=== PATIENT | female | born 1970 | race Caucasian/White ===

== ENCOUNTER 2019-10-26 07:39 | Outpatient (CLI) | payer OTHER, SELFPAY ==
--- NOTE | 2019-10-26 07:45 | MM_ITS ---
WS: [id number] BILATERAL DIGITAL SCREENING MAMMOGRAPHY WITH CAD CLINICAL INFORMATION: SCREENING HISTORY: Screening mammogram. No current complaints. COMPARISON: August 15, 2018 TECHNIQUE: Bilateral CC and MLO views. FINDINGS: The breasts are composed of heterogeneous fibroglandular density tissue, which can limit the detectio n of small underlying mass lesions. No suspicious mass, asymmetry, calcifications, or architectural d istortion. No evidence of malignancy. MM/[place] [id number] IMPRESSION: BI-RADS: 1-Negative FOLLOW UP: 1 Year Follow-up Recommend return to annual screening mammography.
== END 2019-10-26 07:40 | disposition home or self-care (01) ==
LOC: RADSHAW 07:41
PROVIDERS: PCP Internal Medicine; Visit Provider Obstetrics & Gynecology
DX: Z12.31 Encounter for screening mammogram for malignant neoplasm of breast (principal)
CPT/HCPCS: 77067

== ENCOUNTER → 2020-01-18 10:53 | Outpatient (BNVA) | payer OTHER, SELFPAY | PROVIDERS: PCP Internal Medicine; Visit Provider Internal Medicine | DX: Z20.828 Contact with and (suspected) exposure to other viral communicable diseases (principal) | CPT/HCPCS: 87635 ==

== ENCOUNTER → 2020-09-16 08:30 | Outpatient (BNVA) | payer OTHER, SELFPAY | PROVIDERS: PCP Internal Medicine; Visit Provider Obstetrics & Gynecology | DX: Z12.4 Encounter for screening for malignant neoplasm of cervix (principal); B37.3 Candidiasis of vulva and vagina | CPT/HCPCS: 88175 ==

== ENCOUNTER 2020-11-06 08:09 | Outpatient (CLI) | payer OTHER, SELFPAY ==
--- NOTE | 2020-11-06 08:17 | MM_ITS ---
WS: [id number] BILATERAL DIGITAL SCREENING MAMMOGRAPHY WITH CAD CLINICAL INFORMATION: SCREENING HISTORY: Screening mammogram. No current complaints. COMPARISON: October 26, 2019 TECHNIQUE: Bilateral CC and MLO views. FINDINGS: The breasts are composed of heterogeneous fibroglandular density tissue, which can limit the detectio n of small underlying mass lesions. No suspicious mass, asymmetry, calcifications, or architectural d istortion. No evidence of malignancy. MM/[place] [id number] IMPRESSION: BI-RADS: 1-Negative FOLLOW UP: 1 Year Follow-up Recommend return to annual screening mammography.
== END 2020-11-06 08:10 | disposition home or self-care (01) ==
LOC: RADSHAW 08:14
PROVIDERS: PCP Family Medicine; Visit Provider Obstetrics & Gynecology
DX: Z12.31 Encounter for screening mammogram for malignant neoplasm of breast (principal)
CPT/HCPCS: 77067

== ENCOUNTER 2021-05-14 15:45 | Outpatient (CLI) | payer OTHER, SELFPAY ==
[2021-05-14 15:50] VITALS: BP 124/82; PULSE 108; RESP 18; O2SAT 99; BMI 27.4
[2021-05-14 16:29] VITALS: BP 118/79; PULSE 100; RESP 17; O2SAT 99
[2021-05-14 17:22] VITALS: BP 118/79; PULSE 108; RESP 16; O2SAT 98
== END 2021-05-14 15:46 | disposition home or self-care (01) ==
LOC: OPS 15:47
PROVIDERS: PCP Family Medicine; Visit Provider Nurse Practitioner Family
DX: U07.1 COVID-19 (principal)
CPT/HCPCS: 96365

== ENCOUNTER → 2021-12-10 08:29 | Outpatient (BNVA) | payer OTHER, SELFPAY | PROVIDERS: PCP Family Medicine; Visit Provider Obstetrics & Gynecology | DX: N93.9 Abnormal uterine and vaginal bleeding, unspecified (principal) | CPT/HCPCS: 76830 ==

== ENCOUNTER 2022-02-03 10:35 | Day surgery (SDC) | payer OTHER, SELFPAY ==
[2022-02-02 12:30] VITALS: BMI 27.4
[2022-02-03] VITALS (8 sets, daily range): BP systolic 94–135; BP diastolic 61–87; PULSE 93–102; RESP 13–18; TEMP 36.3; O2SAT 95–100
[2022-02-03] MEDS: sodium chloride 0.9% 1,000 ML 30 ML IV (11:07)
--- NOTE | 2022-02-03 12:34 | W.PM.OPSUD ---
Surgery/Procedure H&P Update DATE OF PROCEDURE: February 03, 2022 DATE H&P PERFORMED: 01/29/22 H&P UPDATE INFORMATION: I have reviewed H&P completed within last 30 days, I have examined patient prior to procedure and No changes to prior documentation PREOP DIAGNOSIS: thickened endometrium PLANNED PROCEDURE: Operation Date: 02/03/22 12:25 Proposed Procedures p Hysteroscopy, dilation and curettage with Myosure 05187, 59560,52588,N95.0(Not Applicable) - Maria Luz Quintero MD s Dilation And Curettage (D&C)(Not Applicable) - Maria Luz Quintero MD Related Problem List Diagnoses (1) Thickened endometrium:
[2022-02-03] MEDS: ceFAZolin 2,000 MG in sodium chloride 0.9% (plus) 50 ML 100 MG IV (12:45)
[2022-02-03] MEDS: miSOPROStol 200 mcg Tablet 800 MCG VAGINAL (13:09)
--- NOTE | 2022-02-03 13:34 | PM.OP ---
Operative Report Date of procedure: February 03, 2022 Pre-op diagnosis: Preop Diagnosis thickened endometrium Post-op diagnosis: same Post-op findings: 8 week sized uterus. Thickened endometrium with excessive tissue Procedure done: hysteroscopy, dilation and curettage with myosure Specimens removed/disposition: endometrial curettings to pathology Surgeon: Maria Luz Quintero Anesthesia: General Estimated blood loss (mL): 2 IV fluids (mL): 800 Complications: none Findings: hysteroscopy deficit 80 ml Condition: stable Disposition: PACU Procedure: The patient was taken to the operating room where monitored anesthesia was administered and to be adequate. She was prepped and draped in the normal sterile fashion in the dorsal lithotomy position in [facility]. A weighted speculum was placed into the vagina and the anterior lip of the cervix grasped with a single-tooth tenaculum. The cervical os was stenotic. 800 mcg of cytotec was placed vaginally. The uterus was sounded to 8 cm. The cervix was dilated to 16 Latvian. The hysteroscope was advanced into the endometrial cavity. There was excessive tissue visualized. The MyoSure device was activated and the tissue was removed. Pictures were taken pre and post procedure. All instruments were removed. The patient tolerated the procedure well. Sponge lap and needle counts were correct x3. She was taken to the recovery room in stable condition.
--- NOTE | 2022-02-03 13:37 | PM.DCS ---
Discharge Providers Date of Admission: 02/03/22 Date of Discharge: February 03, 2022 Attending Provider at Admission: Dr. Quintero Attending Provider at Discharge: Maria Luz Quintero MD Primary Care Provider: Kervin Washington MD Diagnoses at Discharge Discharge Diagnosis (1) Thickened endometrium: Status: Acute Reason for Visit Reason for Visit: postmenopausal bleeding Hospital Course Hospital Course The patient was admitted for surgery. She did well postoperatively and was ready for discharge. Discharge Data Studies Completed and Pending Pending at discharge Category Date Time Status Pathology: Surgical [PTH] Routine Pth 02/03/22 13:32 Ordered Vitals Last Vital Signs Temp 97.4 F L 02/03/22 11:08 Pulse 102 H 02/03/22 11:08 Resp 18 02/03/22 11:08 BP 135/86 02/03/22 11:08 Pulse Ox 98 02/03/22 11:08 O2 Del Method 02/03/22 11:08 Discharge Plan Discharge Patient Disposition: Home Condition: Stable Prescriptions: Continued amitriptyline 75 mg tablet 75 mg PO DAILY cetirizine [24Hour Allergy] 10 mg tablet 10 mg PO DAILY gabapentin 300 mg PO DIRECTED Rx Instructions: 300mg in the am and 600mg at bedtime Discharge Orders: Discharge Order (Routine); Ordered 02/03/22 Ordered By: Maria Luz Quintero Discharge Attestations Time Spent in Discharge Care*: less than 30 min Quality Metrics Clinical Quality Measures [ No reported AMI, CVA or VTE this stay] Coding Level of Care Code Acute Chg FW DC note Diagnoses Thickened endometrium R93.89
--- NOTE | 2022-02-03 13:44 | ANES.PREANE2 ---
Pre-Anesthetic Assessment Height/Weight: Height 1.65 m Weight 74.843 kg Temp Pulse Resp BP Pulse Ox O2 Del Method 97.4 F L 93 14 108/84 100 02/03/22 13:40 02/03/22 13:40 02/03/22 13:40 02/03/22 13:40 02/03/22 13:40 02/03/22 13:40 Preop Diagnosis: thickened endometrium Operation Date: 02/03/22 12:25 Proposed Procedures p Hysteroscopy, dilation and curettage with Myosure 06674, 83400,95508,N95.0(Not Applicable) - Maria Luz Quintero MD s Dilation And Curettage (D&C)(Not Applicable) - Maria Luz Quintero MD Familial anesthetic complications: none Was Beta Lorena taken within 24 hours: N/A Was Clonidine taken within 24 hours: N/A Last intake: Intake Last Liquid Date 02/02/22 Last Liquid Time 21:00 Last Solid Date 02/02/22 Last Solid Time 20:00 Social Tobacco and No alcohol Exam alert, oriented x 3, clear to auscultation bilaterally and regular rate & rhythm Airway Submandibular: within normal limits Cervical ROM: within normal limits Mallampati: Class II Dentition: full Neuropsych Headache Anesthetic Plan ASA status: 2 Anesthesia: General Medications/Allergies Home Medications Medication Instructions Recorded Confirmed Last Taken Type cetirizine 10 mg tablet (24Hour 10 mg PO DAILY 09/11/19 02/02/22 Unknown History Allergy) amitriptyline 75 mg tablet 75 mg PO DAILY 09/16/20 02/03/22 02/02/22 History gabapentin 300 mg PO DIRECTED 09/22/21 02/03/22 02/03/22 History Allergies Allergy/AdvReac Type Severity Reaction Status Date / Time Penicillins AdvReac Difficulty Verified 02/02/22 12:28 breathing--can take Keflex Current Medications Generic Name Dose Route Start Last Admin Trade Name Freq PRN Reason Stop Dose Admin Sodium Chloride 1,000 mls @ 30 mls/hr 02/03/22 10:45 02/03/22 11:07 Sodium Chloride 0.9% IV 02/04/22 10:44 30 mls/hr .Q24H BRIDGET Administration PFSH Anesthesia Medical History Irritable bowel syndrome IBS has been controlled by diet and avoiding trigger foods. This is managed by her primary care provider Dr. Graf. Migraines, neuralgic Since her teenage years. Denies auras Controlled with medication. No pertinent past medical history Denies diabetes, asthma, hypertension, seizures, DVT/PE. PMD: Dr. Washington Surgical History History of carpal tunnel surgery Bilateral in 2012 S/P dilation of urethra Performed at age 2 for frequent urinary tract infections Family History Family/Other Breast cancer Maternal aunt, diagnosed in her 40s, maternal great aunt, age at diagnosis unknown Mother Hypertension Sister Hypertension Grandfather Diabetes paternal Mother Heart disease Denies family history of Colon cancer Ovarian cancer Hyperlipidemia Uterine cancer Thyroid condition Stroke Social History Smoking and tobacco status: never smoked Data Anesthesia Cardiac Studies: No Data to Display
[2022-02-03] MEDS: HYDROmorphone 1 mg/mL INJ 1 mL 0.5 MG IVP (14:22)
--- NOTE | 2022-02-03 15:19 | ANE.PACU2 ---
Inpatient post-anesthesia follow up: Airway intact: Yes Vital signs: Temperature 97.3 F Pulse Rate 96 Respiratory Rate 18 Blood Pressure 123/87 Pulse Oximetry 100 Oxygen Delivery Me thod Room Air Oxygen Flow Rate Fraction of Inspir ed Oxygen Hydration adequate: Yes Nausea and vomiting: No Pain level: 2 Mental status: Baseline
== END 2022-02-03 15:07 | disposition home or self-care (01) ==
PROVIDERS: PCP Family Medicine; Visit Provider Obstetrics & Gynecology
PROC: 0UDB8ZZ Extraction of Endometrium, Via Natural or Artificial Opening Endoscopic (ICD-10-PCS; CPT 58558; principal; 2022-02-03 12:15)
PROC: (CPT 58120; 2022-02-03 12:15)
DX: R93.89 Abnormal findings on diagnostic imaging of other specified body structures (principal)
CPT/HCPCS: 58558; 88305; J0330; J1100; J1170; J1200; J1885; J2250; J2405; J2704; J2710; J3010; J3490; J7030

== ENCOUNTER 2022-02-19 04:00 | Observation (INO) | payer OTHER, SELFPAY ==
[2022-02-19] VITALS (11 sets, daily range): BP systolic 120–146; BP diastolic 76–98; PULSE 87–116; RESP 15–17; TEMP 36.6–36.8; O2SAT 94–97; BMI 28.3
--- NOTE | 2022-02-19 04:02 | XRR_ITS ---
PROCEDURE INFORMATION: Exam: XR Chest Exam date and time: 02/19/2022 4:19 AM Age: 51 years old Clinical indication: Pain; Chest pressure; Additional info: Cp TECHNIQUE: Imaging protocol: Radiologic exam of the chest. Views: 1 view. COMPARISON: CR XR ribs LT mn 3V w CXR1V [id number] 08/14/2015 2:53 PM FINDINGS: Lungs: Normal lung volumes. No interstitial or airspace opacities. Pleural spaces: No pleural effusion. No pneumothorax. Heart/Mediastinum: Normal heart size. Normal mediastinal contour. Midline trachea. Bones/joints: No acute abnormalities. XR/XR chest 1V portable [id number] IMPRESSION: No chest radiographic evidence of acute cardiopulmonary disease.
--- NOTE | 2022-02-19 04:06 | ECG_ITS ---
[facility] Test Date: 2022-02-19 Pat Name: Tika Salmeron Department: Room: 251 Gender: Female Supervisor [employer]: : 1970 Requested By: Charlee Pringle Order Number: [id number] Alicia MD: Dutch Alejandro M.D. Measurements Intervals [place] Rate: 95 P: 39 HI: 134 QRS: 35 QRSD: 88 T: 54 QT: 340 QTc: 428 Interpretive Statements SINUS RHYTHM LOW QRS VOLTAGE IN PRECORDIAL LEADS [QRS DEFLECTION < 1.0 mV IN CHEST LEADS] No previous ECG available for comparison Electronically Signed On 02-19-2022 11:07:29 CDT by Dutch Alejandro M.D. [email or web address] [email or web address] Network [email or web address].[employer]/store/NU/[id number] f
--- NOTE | 2022-02-19 04:10 | W.ED.CHESTPA ---
HPI - Chest Pain General: Chief Complaint: Chest Pain Stated Complaint: CP Time Seen by Provider: 02/19/22 04:02 Source: patient Mode of arrival: ambulatory Limitations: no limitations History of Present Illness: 51-year-old female who states that she has been having epigastric abdominal pain radiates into her chest and back since 1030 last night. She states the pain is very sharp in nature and rates it an 8 out of 10. She has some mild dyspnea pain is worse with palpation and deep breathing. She denies any vomiting she denies any fever. She denies any dysuria. Associated symptoms: Reports abdominal pain; Deny dyspnea or fever(s) Review of Systems Const: Denies: fever(s), chills, body aches or change in appetite Eyes: Denies: blurry vision or eye discomfort ENMT: Denies: throat pain or dental pain Card: Reports: chest pain Resp: Denies: dyspnea GI: Reports: abdominal pain : Denies: dysuria Musc: Denies: neck pain or back pain Skin/Breast: Denies: rash Neuro: Denies: headache(s) Psych: Denies: depression Valeriy/Lymph: Denies: easy bruising All/Imm: Denies: urticaria PFSH ED PFSH: Medical History Irritable bowel syndrome IBS has been controlled by diet and avoiding trigger foods. This is managed by her primary care provider Dr. Graf. Migraines, neuralgic Since her teenage years. Denies auras Controlled with medication. No pertinent past medical history Denies diabetes, asthma, hypertension, seizures, DVT/PE. PMD: Dr. Washington Surgical History History of carpal tunnel surgery Bilateral in 2012 S/P dilation of urethra Performed at age 2 for frequent urinary tract infections Family History Family/Other Breast cancer Maternal aunt, diagnosed in her 40s, maternal great aunt, age at diagnosis unknown Mother Hypertension Sister Hypertension Grandfather Diabetes paternal Mother Heart disease Denies family history of Colon cancer Ovarian cancer Hyperlipidemia Uterine cancer Thyroid condition Stroke Social History Smoking and tobacco status: never smoked Female Reproductive History: Date of last menstrual period: 01/20/22 Physical Exam Const: COMMON NORMALS: no acute distress, patient oriented x3 and healthy appearing HENMT: COMMON NORMALS: normocephalic and atraumatic HEAD & SCALP: normocephalic and atraumatic Eye: COMMON NORMALS: Equal, round and reactive pupils present and EOMs intact bilaterally PUPIL: Yes Equal, round and reactive pupils present Neck/C-Spine: COMMON NORMALS: full ROM and supple Chest: COMMONS NORMALS: normal inspection of the chest and normal palpation of entire chest wall Resp: COMMON NORMALS: normal respiratory effort, No retractions, No use of accessory muscles and clear to auscultation bilaterally AUSCULTATION: clear to auscultation bilaterally Cardio: COMMON NORMALS: regular rate, regular rhythm and No murmurs present (Cardio) RATE: regular rate RHYTHM: regular rhythm GI: COMMON NORMALS: Normal to inspection, nondistended, normoactive bowel sounds present, Soft to palpation and no masses PALPATION: Yes Soft to palpation and Yes Tenderness to palpation present (GI) Details: RUQ OTHER: epigastric tenderness Extremity: COMMON NORMALS: normal to inspection and full ROM Neuro: COMMON NORMALS: patient oriented x3, moves all extremities and no focal motor deficits Psych: COMMON NORMALS: mental status grossly normal, Normal thought process present and cooperative THOUGHT PROCESS: Normal thought process present Skin: COMMON NORMALS: no rashes or lesions noted and no wounds GENERAL SKIN EXAM: no rashes or lesions noted Course Vital Signs: Vital signs: Vital Signs Temperature 97.9 F 02/19/22 04:02 Pulse Rate 97 02/19/22 04:11 Respiratory Rate 16 02/19/22 04:11 Blood Pressure 141/87 02/19/22 04:02 Pulse Oximetry 96 02/19/22 04:11 Oxygen Delivery Me thod 02/19/22 04:11 MDM - Chest Pain Medical Decision Making Patient presents here with cholelithiasis along with leukocytosis ultrasound did show gallstones with a positive Richards's she still having pain and tenderness over the right upper quadrant concern for cholecystitis I did speak to surgeon on-call will start IV antibiotics and admit at this time she really had no chest pain it is more epigastric abdominal pain. Lab Data : 02/19/22 04:17 02/19/22 04:17 Laboratory Results WBC 15.8 10^3/uL (4.0-10.0) H 02/19/22 04:17 RBC 4.88 10^6/uL (4.1-5.3) 02/19/22 04:17 Hgb 13.7 g/dL (11.5-15.3) 02/19/22 04:17 Hct 45.3 % (37.0-47.0) 02/19/22 04:17 MCV 92.8 fl (81-99) 02/19/22 04:17 MCH 28.1 pg (28.0-34.0) 02/19/22 04:17 MCHC 30.2 g/dL (30.0-36.0) 02/19/22 04:17 RDW 13.3 % (12.1-15.1) 02/19/22 04:17 Plt Count 385 10^3/cmm (130-400) 02/19/22 04:17 MPV 9.2 fL (7.4-10.4) 02/19/22 04:17 Neut % (Auto) 90.2 % 02/19/22 04:17 Lymph % (Auto) 5.7 % 02/19/22 04:17 [place] % (Auto) 3.0 % 02/19/22 04:17 Eos % (Auto) 0.1 % 02/19/22 04:17 Baso % (Auto) 0.4 % 02/19/22 04:17 Neut # (Auto) 14.22 10^3/uL (1.8-7.7) H 02/19/22 04:17 Lymph # (Auto) 0.9 10^3/uL (0.8-4.8) 02/19/22 04:17 [place] # (Auto) 0.5 10^3/uL (0.2-0.9) 02/19/22 04:17 Eos # (Auto) 0.0 10^3/uL (0.0-0.8) 02/19/22 04:17 Baso # (Auto) 0.1 10^3/uL (0.0-0.1) 02/19/22 04:17 Nucleated RBC % (auto) 0 % 02/19/22 04:17 Nucleated RBCs # 0.0 /100WBC 02/19/22 04:17 Sodium 136 mmol/L (136-145) 02/19/22 04:17 Potassium 4.1 mmol/L (3.5-5.1) 02/19/22 04:17 Chloride 98 mmol/L (98-107) 02/19/22 04:17 Carbon Dioxide 23 mmol/L (22-29) 02/19/22 04:17 Anion Gap 19.1 (5-19) H 02/19/22 04:17 BUN 9 mg/dL (6-20) 02/19/22 04:17 Creatinine 0.7 mg/dL (0.5-0.9) 02/19/22 04:17 GFR Calculation 87.9 mL/min (90-130) L 02/19/22 04:17 Glucose 127 mg/dL (65-115) H 02/19/22 04:17 Calculated Osmolality 282 mOsm/kg (285-295) L 02/19/22 04:17 Calcium 9.5 mg/dL (8.5-10.5) 02/19/22 04:17 Total Bilirubin 0.2 mg/dL (0.15-1.2) 02/19/22 04:17 AST 15 U/L (0-32) 02/19/22 04:17 ALT 13 U/L (0-33) 02/19/22 04:17 Alkaline Phosphatase 190 U/L (35-105) H 02/19/22 04:17 Troponin T Baseline 6 ng/L (0-10) 02/19/22 04:17 Total Protein 8.4 g/dL (6.6-8.7) 02/19/22 04:17 Albumin 4.2 g/dL (3.5-5.2) 02/19/22 04:17 Globulin 4.2 g/dL (1.3-4.6) 02/19/22 04:17 Lipase 13 U/L (13-60) 02/19/22 04:17 EKG Data EKG 1: I personally reviewed and interpreted this EKG as follows: EKG interpretation date: 02/19/22 EKG interpretation time: 04:06 Interpretation: nsr hr [address] or t wave abnormalities qrs 88 qtc 392 Discharge Plan Discharge Patient Disposition: Admitted As Inpatient Clinical Impression: Cholelithiasis, Leukocytosis Condition: Stable Coding Level of Care Code ED Gas Line Repairer for Chg Fwd Exam Comprehensive
--- NOTE | 2022-02-19 04:14 | USR_ITS ---
PROCEDURE INFORMATION: Exam: US Abdomen, Limited; Right Upper Quadrant Exam date and time: 02/19/2022 4:27 AM Age: 51 years old Clinical indication: Abdominal pain; Patient HX: Epigastric pain x 8 hrs. ; Additional info: Abd pain TECHNIQUE: Imaging protocol: Real time ultrasound of the abdomen with image documentation. Limited exam focused on the right upper quadrant. COMPARISON: ES surgery / GI images 02/03/2022 1:15 PM FINDINGS: Liver: The visualized liver shows normal contour and morphology with normal parenchymal echo texture. The liver size appears normal on sonography. Main portal vein is patent. Gallbladder: Multiple mobile gallstones are seen, the largest measuring 1.6 cm. No gallbladder wall thickening. No pericholecystic fluid. Sonographic Richards sign was reported by the drum plater. Hepatobiliary scan may be performed, if there is further clinical concern. Biliary ducts: The demonstrated intrahepatic bile ducts are not dilated. The demonstrated extrahepatic is not dilated. The demonstrated extrahepatic/common bile duct measures 0.4 mm. The distal common bile duct is not well seen. Pancreas: Visualized pancreas is unremarkable. Right kidney: The right kidney measures 9.2 x 5 x 4.8 cm. There is normal renal contour and morphology, with normal parenchymal echotexture. There is no hydronephrosis. Aorta: Visualized segments appear unremarkable. Inferior vena cava: Not well seen, related to bowel gas in the abdomen. Intraperitoneal space: There is no right upper quadrant ascites seen. US/US gall bladder [id number] IMPRESSION: 1. Multiple mobile gallstones, the largest measuring 1.6 cm. No gallbladder wall thickening. No pericholecystic fluid. Sonographic Richards sign was reported by the drum plater. Hepatobiliary scan may be performed, if there is further clinical concern. 2. No biliary ductal dilatation.
[2022-02-19 04:20] LABS: Basophils # 0.1 10^3/uL (0.0-0.1); Basophils % 0.4 %; Eosinophils % 0.1 %; Hematocrit 45.3 % (37.0-47.0); Hemoglobin 13.7 g/dL (11.5-15.3); Lymphocytes # 0.9 10^3/uL (0.8-4.8); Lymphocytes % 5.7 %; Mean Corpuscular HGB Conc 30.2 g/dL (30.0-36.0); Mean Corpuscular Hemoglobin 28.1 pg (28.0-34.0); Mean Corpuscular Volume 92.8 fl (81-99); Mean Platelet Volume 9.2 fL (7.4-10.4); Monocytes # 0.5 10^3/uL (0.2-0.9); Neutrophils # 14.22 10^3/uL (1.8-7.7); Neutrophils % 90.2 %; Nucleated Red Blood Cells % 0 %; Platelet Count 385 10^3/cmm (130-400); Red Blood Count 4.88 10^6/uL (4.1-5.3); Red Cell Distribution Width 13.3 % (12.1-15.1); White Blood Count 15.8 10^3/uL (4.0-10.0)
[2022-02-19] MEDS: lidocaine 2% viscous 15 ML, aluminum-mag hydrox-simethicon 30 ML, sucralfate oral liq 1 GM PO (04:20)
[2022-02-19 04:41] LABS: Troponin(5th) Baseline 6 ng/L (0-10)
[2022-02-19 04:45] LABS: Alanine Aminotransferase 13 U/L (0-33); Albumin Level 4.2 g/dL (3.5-5.2); Alkaline Phosphatase 190 U/L (35-105); Anion Gap 19.1 (5-19); Aspartate Amino Transferase 15 U/L (0-32); Blood Urea Nitrogen 9 mg/dL (6-20); Calcium 9.5 mg/dL (8.5-10.5); Carbon Dioxide 23 mmol/L (22-29); Chloride 98 mmol/L (98-107); Globulin 4.2 g/dL (1.3-4.6); Glomerular Filtration Rate 87.9 mL/min (90-130); Glucose 127 mg/dL (65-115); Lipase 13 U/L (13-60); Osmolality Calculated 282 mOsm/kg (285-295); Potassium 4.1 mmol/L (3.5-5.1); Sodium 136 mmol/L (136-145); Total Bilirubin 0.2 mg/dL (0.15-1.2); Total Protein 8.4 g/dL (6.6-8.7)
[2022-02-19] MEDS: ondansetron 2 mg/ML SDV 2 mL 4 MG IVP (05:21)
[2022-02-19] MEDS: HYDROmorphone 1 mg/mL INJ 1 mL IVP (05:21)
[2022-02-19] MEDS: levofloxacin-dextrose 5 % 750 MG/150 ML PREMIX 100 MG IV (05:21)
--- NOTE | 2022-02-19 06:02 | ECG_ITS ---
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 Measurements Intervals [place] Rate: 91 P: 33 NE: 144 QRS: 27 QRSD: 84 T: 48 QT: 340 QTc: 420 Interpretive Statements SINUS RHYTHM No previous ECG available for comparison Electronically Signed On 02-19-2022 11:09:11 CDT by Dutch Alejandro M.D. [id number]
[2022-02-19 06:51] LABS: Troponin 5 2HR Delta 0 ABS# (0-10)
--- NOTE | 2022-02-19 10:02 | ECG_ITS ---
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 Measurements Intervals [place] Rate: 100 P: 24 NM: 144 QRS: 21 QRSD: 82 T: 35 QT: 333 QTc: 429 Interpretive Statements SINUS TACHYCARDIA Compared to ECG 02/19/2022 05:33:23 Sinus rhythm no longer present Electronically Signed On 02-19-2022 11:08:39 CDT by Dutch Alejandro M.D. [id number]
[2022-02-19] MEDS: morphine 4 mg/mL SDV 1 mL 2 MG IVP (10:04)
[2022-02-19 11:36] LABS: Troponin 5 6HR Delta 0 ng/L (0-12)
--- NOTE | 2022-02-19 12:23 | CTR_ITS ---
PROCEDURE INFORMATION: Exam: CT Abdomen And Pelvis With Contrast Exam date and time: 02/19/2022 3:38 PM Age: 51 years old Clinical indication: Abdominal pain; Epigastric; Additional info: Acute cholecystitis TECHNIQUE: Imaging protocol: Computed tomography of the abdomen and pelvis with contrast. Radiation optimization: All CT scans at this facility use at least one of these dose optimization techniques: automated exposure control; mA and/or kV adjustment per patient size (includes targeted exams where dose is matched to clinical indication); or iterative reconstruction. Contrast material: OMNI 350; Contrast volume: 100 ml; Contrast route: INTRAVENOUS (IV); COMPARISON: US gall bladder [id number] 02/19/2022 4:27 AM RADIATION DOSE METRICS: Total DLP (mGy-cm): 804.83 FINDINGS: Lungs: Bibasilar linear scarring-atelectasis. Liver: Normal size without cirrhosis. No suspicious mass. Tiny hypodense focus anterior left lobe measuring 4 mm, likely tiny cyst. Gallbladder and bile ducts: Gallbladder is somewhat distended measuring 4.2 cm, which may be related to prolonged fasting versus cholestasis. No obvious imaging signs of acute cholecystitis or bile duct dilatation however clinical correlation should be obtained. Sonographic correlation should also be considered. Pancreas: Normal. No ductal dilation. Spleen: Normal. No splenomegaly. Adrenal glands: Normal. No mass. Kidneys and ureters: Tiny hypodense right lower pole renal focus measuring 4 mm, too small to characterize but is likely simple cyst. No obstructing calculi or hydronephrosis. No perinephric stranding or collection. Stomach and bowel: Low-moderate stool burden with no bowel obstruction, pneumatosis or suspicious bowel wall thickening. Appendix: No evidence of appendicitis. Intraperitoneal space: Unremarkable. No free air. No significant fluid collection. Vasculature: No abdominal aortic aneurysm. Lymph nodes: No enlarged lymph nodes. Urinary bladder: Unremarkable as visualized. Reproductive: Unremarkable as visualized. Bones/joints: No acute fracture. Soft tissues: No acute findings. CT/CT abdomen pelvis w con* [id number] IMPRESSION: 1. Gallbladder findings. See discussion above. 2. No acute abdominopelvic findings otherwise. COMMENTS: Consistent with the [employer]'s Incidental Findings Committee white paper (J Am Sanjuana Radiol 2018): Any incidental renal lesion less than 1 cm or classified as too small to characterize, or any incidental cystic renal lesion characterized as simple-appearing, is likely benign. No follow-up imaging is recommended for these lesions per consensus recommendations based on imaging criteria.
[2022-02-19] MEDS: sodium chloride 0.9% 1,000 ML 999 ML IV (12:39)
--- NOTE | 2022-02-19 14:13 | PC.NURSE ---
TRYEIMY Per Dr Crespo. Physician notified patient's pain was returning, with no active orders for pain medication. Order received and read back for 0.5mg Dilaudid Q2H PRN for pain. Dr. Crespo confirmed order.
--- NOTE | 2022-02-19 14:14 | PM.HP ---
Providers/Chief Complaint Admitting Physician: Reid Crespo MD Primary Care Provider: Kervin Washington MD Chief Complaint: CP History of Present Illness Tika Salmeron is a 51 year old female She developed acute abdominal pain in the late evening on 02/18/2022. The pain was located in the mid abdomen, epigastric area, traveling to her chest. She went to the emergency room, work-up showed gallstones. No other pathology was identified. She was also complaining of nausea, she did not vomit. Denies fever or chills. Denies constipation. She has 1 large loose stool. Longstanding history of reflux on and off, she is taking Pepcid for it. Her pain improved somewhat with morphine, however, she still complaining of midepigastric pain which is 6/10. She had similar episodes of pain over the last month. They usually resolve with some heat application to the back. None of these episodes was as severe as today's. History of D&C 2 weeks ago. History of carpal tunnel in the past. History of migraines. She is healthy otherwise, she can walk a mile without any problems, she has an active lifestyle. No history of liver or GI cancers in her family. History of brain cancer and breast cancer. Review of Systems Narrative: 10 point review of systems is negative except as per HPI Medications/Allergies Home Medications Medication Instructions Recorded Confirmed Last Taken Type cetirizine 10 mg tablet (24Hour 10 mg PO DAILY 09/11/19 02/19/22 Unknown History Allergy) amitriptyline 75 mg tablet 75 mg PO DAILY 09/16/20 02/19/22 02/02/22 History gabapentin 300 mg PO DIRECTED 09/22/21 02/19/22 02/03/22 History rimegepant 75 mg disintegrating 75 mg PO PRN PRN Headache 02/19/22 02/19/22 Unknown History tablet (Nurtec ODT) Allergies Allergy/AdvReac Type Severity Reaction Status Date / Time Penicillins AdvReac Difficulty Verified 02/19/22 04:08 breathing--can take Keflex PFSH Acute PFSH: Medical History Irritable bowel syndrome IBS has been controlled by diet and avoiding trigger foods. This is managed by her primary care provider Dr. Graf. Migraines, neuralgic Since her teenage years. Denies auras Controlled with medication. No pertinent past medical history Denies diabetes, asthma, hypertension, seizures, DVT/PE. PMD: Dr. Washington Surgical History History of carpal tunnel surgery Bilateral in 2012 S/P dilation of urethra Performed at age 2 for frequent urinary tract infections Family History Family/Other Breast cancer Maternal aunt, diagnosed in her 40s, maternal great aunt, age at diagnosis unknown Mother Hypertension Sister Hypertension Grandfather Diabetes paternal Mother Heart disease Denies family history of Colon cancer Ovarian cancer Hyperlipidemia Uterine cancer Thyroid condition Stroke Social History Smoking and tobacco status: never smoked Female Reproductive History: Date of last menstrual period: 01/20/22 Vitals/I&O/Wt Last Vital Signs Temp 97.9 F 02/19/22 04:02 Pulse 87 02/19/22 05:50 Resp 16 02/19/22 10:04 BP 144/98 02/19/22 05:50 Pulse Ox 97 02/19/22 05:50 O2 Del Method 02/19/22 05:45 02/18/22 02/19/22 02/19/22 22:59 06:59 14:59 Intake Total 150 / 150 Balance 150 / 150 Weight last 48 hrs Weight 170 lb Physical Exam Narrative: General: No acute distress, comfortable Psych: [AAOx3] Eyes: [sclerae are white] Head/ENT: [normocephalic, symmetric] CV: [regular] pulse, [tachychardic], no JVD Lungs: [symmetrical chest rise] Abdomen: [soft, ND], mild tenderness to palpation in the epigastrium. Slightly more on the left. Also, mild tenderness to palpation in the lower quadrants. More on the left as well. Ext: [no obvious traumatic deformities] Skin: warm Data : 02/19/22 04:17 02/19/22 04:17 A&P Assessment and plan (1) Cholelithiasis: (2) Leukocytosis: (3) Thickened endometrium: (4) Migraines, neuralgic: Plan The patient has no typical picture of acute cholecystitis or biliary colic. Repair is mostly on the left versus on the right in most of the cases and acute cholecystitis. I think the best neck step will be to perform a CT scan to rule out other possible pathology including possible diverticulitis, appendicitis,, late complications from dilation and curettage. - I will give him 1 L bolus, placed on [address] scan with IV contrast. Going to reassess her condition after CT scan is performed. N.p.o., Dilaudid for pain, continue home meds, Lovenox for DVT prophylaxis, Attestations Medical Necessity Statement*: Work up of abdominal pain Coding Level of Care Code Acute Candy Cooker Helper for g Fwd Diagnoses Cholelithiasis K80.20 Leukocytosis D72.829 Thickened endometrium R93.89 Migraines, neuralgic G44.009
[2022-02-19] MEDS: HYDROmorphone 1 mg/mL INJ 1 mL 0.5 MG IVP (14:34)
[2022-02-19] MEDS: sodium chloride 0.9% 1,000 ML 150 ML IV ×2 (14:41→21:36)
[2022-02-19] MEDS: pantoprazole DR 40 mg Tablet PO (15:23)
[2022-02-19] MEDS: ketorolac 30 mg/mL INJ IVP (15:23)
[2022-02-19] MEDS: iohexol 350 mg/mL 100 mL Btl IV (16:00)
--- NOTE | 2022-02-19 16:51 | PM.PN ---
Subjective Subjective: CT scan was reviewed. Slightly distended gallbladder, no other acute problems. No evidence of appendicitis, diverticulitis, pancreatitis. The patient continues to have pain, it is on the right and on the left, however, predominantly in the epigastrium right now. She feels better overall with n.p.o., IV fluids and opioids. Management was discussed in details. I recommend to continue with fluid resuscitation, abdominal exam and reassess labs tomorrow. I think she has a biliary colic. We will discuss cholecystectomy tomorrow, unless something else will transpire. If systems persist, will discuss surgery versus a HIDA scan. However, this is her third episode in 1 months, most likely to be related colic. Vitals/I&O/Wt Last Vital Signs Temp 98.3 F 02/19/22 16:00 Pulse 116 H 02/19/22 16:00 Resp 15 02/19/22 16:00 BP 128/76 02/19/22 16:00 Pulse Ox 94 02/19/22 16:00 O2 Del Method 02/19/22 16:00 02/19/22 02/19/22 02/19/22 06:59 14:59 22:59 Intake Total 1150 / 1150 Balance 1150 / 1150 Weight last 48 hrs Weight 170 lb Data : 02/19/22 04:17 02/19/22 04:17 Attestations Medical Necessity Statement*: Work up of abdominal pain Coding Level of Care Code Acute Saddle And Side Wire Stitcher for Chg Oscar
[2022-02-19] MEDS: sucralfate 1 gm Tablet PO ×2 (17:03→20:29)
[2022-02-19] MEDS: docusate sodium 100 mg Capsule PO (17:03)
[2022-02-19 17:41] LABS: Add Urine Culture? No; Add Urine Microscopic? YES; Bacteria Urine TRACE /hpf; Bilirubin Urine Neg (Negative); Blood Urine 2+ (Negative); Glucose Urine UA Norm (Normal); Ketones Urine Negative (Negative); Leukocyte Esterase Urine Trace (Negative); Nitrate Urine Positive (Negative); Protein Urine 1+ (Negative); RBC Urine 0-4 /hpf (0-2); Specific Gravity, Urine 1.005 (1.005-1.030); Squamous Epithelial Cell Urine 0-4 /hpf (0-5); Urine Appearance Clear (CLEAR); Urine Color Yellow (Yellow); Urobilinogen Urine 4 mg/dL (Negative); WBC Urine 0-4 /hpf (0-5); pH Urine 7 (5-7)
[2022-02-19] MEDS: HYDROcodone-acetaminophen 5-325 mg Tablet 1 TAB PO (18:25)
[2022-02-19] MEDS: sennosides 8.6 mg Tablet 17.2 MG PO (20:30)
[2022-02-19 20:35] LABS: Glucose Point of Care 88 mg/dL (70-110)
[2022-02-20] VITALS (17 sets, daily range): BP systolic 95–123; BP diastolic 63–84; PULSE 87–103; RESP 15–18; TEMP 36.3–36.8; O2SAT 91–100
[2022-02-20] MEDS: HYDROcodone-acetaminophen 5-325 mg Tablet 1 TAB PO (03:47)
[2022-02-20] MEDS: sodium chloride 0.9% 1,000 ML 150 ML IV (03:49)
[2022-02-20 05:01] LABS: Basophils % 0.5 %; Eosinophils # 0.1 10^3/uL (0.0-0.8); Eosinophils % 0.9 %; Hematocrit 38.3 % (37.0-47.0); Hemoglobin 11.9 g/dL (11.5-15.3); Lymphocytes # 1.4 10^3/uL (0.8-4.8); Lymphocytes % 18.8 %; Mean Corpuscular HGB Conc 31.1 g/dL (30.0-36.0); Mean Corpuscular Hemoglobin 28.4 pg (28.0-34.0); Mean Corpuscular Volume 91.4 fl (81-99); Mean Platelet Volume 9.8 fL (7.4-10.4); Monocytes # 0.8 10^3/uL (0.2-0.9); Monocytes % 10.6 %; Neutrophils # 5.27 10^3/uL (1.8-7.7); Neutrophils % 68.9 %; Nucleated Red Blood Cells % 0 %; Platelet Count 362 10^3/cmm (130-400); Red Blood Count 4.19 10^6/uL (4.1-5.3); Red Cell Distribution Width 13.6 % (12.1-15.1); White Blood Count 7.7 10^3/uL (4.0-10.0)
[2022-02-20 05:33] LABS: Alanine Aminotransferase 175 U/L (0-33); Albumin Level 3.3 g/dL (3.5-5.2); Alkaline Phosphatase 175 U/L (35-105); Anion Gap 12.9 (5-19); Aspartate Amino Transferase 150 U/L (0-32); Blood Urea Nitrogen 9 mg/dL (6-20); Calcium 8.3 mg/dL (8.5-10.5); Carbon Dioxide 23 mmol/L (22-29); Chloride 107 mmol/L (98-107); Glucose 90 mg/dL (65-115); Osmolality Calculated 286 mOsm/kg (285-295); Potassium 3.9 mmol/L (3.5-5.1); Sodium 139 mmol/L (136-145); Total Bilirubin 0.4 mg/dL (0.15-1.2); Total Protein 6.3 g/dL (6.6-8.7)
[2022-02-20] MEDS: levofloxacin-dextrose 5 % 750 MG/150 ML PREMIX 100 MG IV (05:50)
[2022-02-20 06:29] LABS: Glucose Point of Care 90 mg/dL (70-110)
--- NOTE | 2022-02-20 08:34 | PM.PN ---
Subjective Subjective: The patient continues to have mild midepigastric pain. Some pain in the right upper quadrant as well, overall she feels better. Minimal elevation in LFTs today. No other acute events overnight. Vitals/I&O/Wt Last Vital Signs Temp 98.1 F 02/20/22 08:00 Pulse 91 02/20/22 08:00 Resp 16 02/20/22 08:00 BP 118/74 02/20/22 08:00 Pulse Ox 94 02/20/22 08:00 O2 Del Method 02/20/22 08:00 02/19/22 02/20/22 02/20/22 22:59 06:59 14:59 Intake Total 1000 / 2150 932.5 / 3082.5 150 / 150 Balance 1000 / 2150 932.5 / 3082.5 150 / 150 Weight last 48 hrs Weight 184 lb 3.2 oz Weight 170 lb Physical Exam Narrative: General: No acute distress, comfortable Psych: AAOx3 Eyes: Sclerae are white Head/ENT: Normocephalic, symmetric CV: Regular pulse, tachychardic, no JVD Lungs: Symmetrical chest rise Abdomen: Soft, ND, mild tenderness to palpation in the epigastrium. . Ext: No obvious traumatic deformities Skin: warm Data : 02/20/22 03:30 02/20/22 03:30 A&P Assessment and plan (1) Cholelithiasis: (2) Leukocytosis: (3) Thickened endometrium: (4) Migraines, neuralgic: Plan The patient condition most likely presents biliary colic, or early acute cholecystitis. Her pain is more or less constant and gallbladder is distended both on ultrasound and CT scan. I think she would benefit from a laparoscopic cholecystectomy. Risks and benefits of surgery were discussed with the patient including possibility of infection, bleeding, damage to surrounding structures, incisional hernia, complications related to general anesthesia, blood clots. The patient agreed to proceed with a laparoscopic cholecystectomy with IOC. Attestations Medical Necessity Statement*: Surgical procedure Coding Level of Care Code Acute Senior Accounting Manager for [facility] Diagnoses Cholelithiasis K80.20 Leukocytosis D72.829 Thickened endometrium R93.89 Migraines, neuralgic G44.009
[2022-02-20] MEDS: sucralfate 1 gm Tablet PO (08:46)
[2022-02-20] MEDS: pantoprazole DR 40 mg Tablet PO (08:46)
[2022-02-20] MEDS: docusate sodium 100 mg Capsule PO (08:46)
[2022-02-20] MEDS: sodium chloride 0.9% 1,000 ML 30 ML IV (09:48)
--- NOTE | 2022-02-20 10:07 | PC.CHAP ---
Pastoral Care Encounter/Spiritual Assessment Type of Contact [] Declined handle attacher visit [] Patient/Family/Request visit [] Outpatient visit [] Follow-up visit [] Physician referral [] Code/Alert [x] Routine visit [] Staff referral [] Actively dying [] Patient sleeping [] Family support [] [] Out of room [] Palliative care [] [] Receiving care in room [] Pre-surgical visit [] Trauma [] Long length of stay [] ICU visit [] Other: Relational/Emotional Strength [x Patient feels connected with others/family/visitors/staff [] Distress [] Loneliness/isolation [] Abandonment Spirituality of Patient [x] Person of [place] [] Attends Anabaptism of their [place] []x Believes in Prayer [] Reads Bible or Buddhist materials [] There are Spiritual issues to be addressed Penology Professor Interventions [x] Prayer [x]x Active listening []x Non-anxious presence [x] Spiritual/emotional support [] Crisis/trauma care [] Spiritual counseling [] Bereavement support [] Provided bereavement packet [] Provided Bible/devotional materials [] Provided toy/stuffed animal, coloring book to patient or family member [] Provided Communion [] Anointing/[place] [] Salvation [x] Completed spiritual assessment [] Other: Impact on Illness or Injury [] Angry [] Fearful [] Anxious [] Often cries [] Exhaustion [] Unable to work [] Unable to attend pentecostal [] Unable to walk/stand [] Unable to read [] Unable to drive [] Unable to eat/drink [] Unable to sleep [] Unable to be with family [] Patient intubated [] Other: Summary Time spent with patient 5 min
--- NOTE | 2022-02-20 10:21 | P.ANESASSM_ITS ---
Pre-Anesthetic Assessment Height/Weight: Height 1.65 m Weight 83.552 kg Temp Pulse Resp BP Pulse Ox O2 Del Method 97.4 F L 92 16 123/84 98 02/20/22 09:31 02/20/22 09:31 02/20/22 09:31 02/20/22 09:31 02/20/22 09:31 02/20/22 08:00 Preop Diagnosis: thickened endometrium Operation Date: 02/20/22 10:05 Proposed Procedures p Laparoscopic Cholecystectomy(Not Applicable) - Reid Crespo MD Familial anesthetic complications: none Was Beta Lorena taken within 24 hours: N/A Was Clonidine taken within 24 hours: N/A Last intake: Intake Last Liquid Date 02/20/22 Last Liquid Time 07:30 Last Solid Date 02/18/22 Last Solid Time 20:00 Social No alcohol and No tobacco Exam alert, oriented x 3, clear to auscultation bilaterally and regular rate & rhythm Airway Submandibular: within normal limits Cervical ROM: within normal limits Mallampati: Class II Dentition: full Neuropsych Headache Anesthetic Plan ASA status: 2 Anesthesia: General Medications/Allergies Home Medications Medication Instructions Recorded Confirmed Last Taken Type cetirizine 10 mg tablet (24Hour 10 mg PO DAILY 09/11/19 02/19/22 Unknown History Allergy) amitriptyline 75 mg tablet 75 mg PO DAILY 09/16/20 02/19/22 02/02/22 History gabapentin 300 mg PO DIRECTED 09/22/21 02/19/22 02/03/22 History rimegepant 75 mg disintegrating 75 mg PO PRN PRN Headache 02/19/22 02/19/22 Unknown History tablet (Nurtec ODT) tramadol 50 mg tablet 50 mg PO Q8H PRN pain 5 days #14 02/19/22 Unknown Rx tabs Allergies Allergy/AdvReac Type Severity Reaction Status Date / Time Penicillins AdvReac Difficulty Verified 02/19/22 04:08 breathing--can take Keflex Current Medications Generic Name Dose Route Start Last Admin Trade Name Freq PRN Reason Stop Dose Admin Hydrocodone Bitart/Acetaminophen 1 tab 02/19/22 14:25 02/20/22 03:47 Hydrocodone-Acetaminophen 5-325 Mg Tablet PO 1 tab Q4H PRN Administration MODERATE TO SEVERE PAIN Docusate Sodium 100 mg 02/19/22 18:00 02/20/22 08:46 Docusate Sodium 100 Mg Capsule PO 100 mg BID BRIDGET Administration Hydromorphone HCl 0.5 mg 02/19/22 14:10 02/19/22 14:34 Hydromorphone 1 Mg/Ml Inj 1 Ml IVP 0.5 mg Q4H PRN Administration PAIN Sodium Chloride 1,000 mls @ 150 mls/hr 02/19/22 12:30 02/20/22 08:48 Sodium Chloride 0.9% IV Not Given .Q6H40M BRIDGET Levofloxacin/Dextrose 750 mg in 150 mls @ 100 mls/hr 02/20/22 06:00 02/20/22 07:41 Levaquin-D5w IV Infused Q24H BRIDGET Infusion Protocol Sodium Chloride 1,000 mls @ 30 mls/hr 02/20/22 09:45 02/20/22 09:48 Sodium Chloride 0.9% IV 02/21/22 09:44 30 mls/hr .Q24H BRIDGET Administration Pantoprazole Sodium 40 mg 02/19/22 15:00 02/20/22 08:[address] 40 Mg Tablet PO 40 mg DAILY BRIDGET Administration Senna 17.2 mg 02/19/22 21:00 02/19/22 20:30 Sennosides 8.6 Mg Tablet PO 17.2 mg BEDTIME BRIDGET Administration Sucralfate 1 gm 02/19/22 17:00 02/20/22 08:46 Sucralfate 1 Gm Tablet PO 1 gm QID BRIDGET Administration PFSH Anesthesia Medical History Irritable bowel syndrome IBS has been controlled by diet and avoiding trigger foods. This is managed by her primary care provider Dr. Graf. Migraines, neuralgic Since her teenage years. Denies auras Controlled with medication. No pertinent past medical history Denies diabetes, asthma, hypertension, seizures, DVT/PE. PMD: Dr. Washington Surgical History History of carpal tunnel surgery Bilateral in 2012 S/P dilation of urethra Performed at age 2 for frequent urinary tract infections Family History Family/Other Breast cancer Maternal aunt, diagnosed in her 40s, maternal great aunt, age at diagnos is unknown Mother Hypertension Sister Hypertension Grandfather Diabetes paternal Mother Heart disease Denies family history of Colon cancer Ovarian cancer Hyperlipidemia Uterine cancer Thyroid condition Stroke Social History Smoking and tobacco status: never smoked Female Reproductive History Date of last menstrual period: 01/20/22 Data Anesthesia : 02/20/22 03:30 02/20/22 03:30 Short CBC 02/19/22 02/20/22 Range/Units 04:17 03:30 WBC 15.8 H 7.7 (4.0-10.0) 10^3/uL Hgb 13.7 11.9 (11.5-15.3) g/dL Hct 45.3 38.3 (37.0-47.0) % MCV 92.8 91.4 (81-99) fl Plt Count 385 362 (130-400) 10^3/cmm Neut % (Auto) 90.2 68.9 % Neut # (Auto) 14.22 H 5.27 (1.8-7.7) 10^3/uL BMP 02/19/22 02/20/22 04:17 03:30 Sodium 136 139 Potassium 4.1 3.9 Chloride 98 107 Carbon Dioxide 23 23 BUN 9 9 Creatinine 0.7 0.6 Glucose 127 H 90 Calcium 9.5 8.3 L Cardiac Enzymes 02/19/22 02/19/22 02/19/22 Range/Units 04:17 06:07 10:18 Troponin T Baseline 6 (0-10) ng/L Troponin T 120 Minute 6.00 (0-10) ng/L Delta Troponin T 0 (0-10) ABS# Troponin T Hi Sens 6Hr 6.00 (0-10) ng/L Troponin T Hi Sens 6Hr Delta 0 (0-12) ng/L Liver Function 02/19/22 02/20/22 Range/Units 04:17 03:30 Total Bilirubin 0.2 0.4 (0.15-1.2) mg/dL AST 15 150 H (0-32) U/L ALT 13 175 H (0-33) U/L Alkaline Phosphatase 190 H 175 H (35-105) U/L Albumin 4.2 3.3 L (3.5-5.2) g/dL Urine 02/19/22 Range/Units 17:16 Urine Color Yellow (Yellow) Urine Appearance Clear (CLEAR) Urine pH 7 (5-7) Ur Specific [place] 1.005 (1.005-1.030) Urine Protein 1+ H (Negative) Urine Glucose (UA) Norm (Normal) Urine Ketones Negative (Negative) Urine Nitrate Positive H (Negative) Urine Bilirubin Neg (Negative) Ur Leukocyte Esterase Trace H (Negative) Urine RBC 0-4 H (0-2) /hpf Urine WBC 0-4 H (0-5) /hpf Cardiac Studies: No Data to Display
[2022-02-20] MEDS: clindamycin 900 MG/50 ML PREMIX 100 MG IV (10:33)
--- NOTE | 2022-02-20 12:22 | P.OP_ITS ---
Operative Report Date of procedure: February 20, 2022 Pre-op diagnosis: Preoperative diagnosis: [Symptomatic gallstones]_. Postoperative diagnosis: [Acute calculus cholecystitis]_. Procedure: Laparoscopic cholecystectomy with IOC (CPT 89965) Surgeon: Reid Crespo MD Start/End time: please, see nursing documentation. Antisubmarine Weapons Officer: none Anesthesia: General Endotracheal Anesthesiologist/MANAGER ANALYTICAL: please, see anesthesia documentation. EBL, ml: 5 ml Specimen: gallbladder, submitted to pathology Complications: none Findings: Gallbladder was acutely distended, erythematous, consistent with acute cholecystitis []_ Indications: 51-year-old female_ with a clinical picture of acute cholecystitis_ confirmed by RUQ US and CT scan_ We discussed the natural course and management of the disease. We discussed indications for laparoscopic cholecystectomy, including risks and benefits of a surgical procedure. We discussed possible complications, including infection, bleeding, damage to surrounding tissue, intraabdominal abscess, hernia at the incision site, bowel obstruction, deep venous thrombosis, pulmonary embolism, and . We specifically discussed biliary anatomy and the possibility of a common bile duct injury and bile leak with all the associated morbidity and the need for another procedure to repair it. We discussed the possibility of a retained stones and the general principles of ERCP and bile duct exploration. The patient agreed to proceed with laparoscopic cholecystectomy with IOC and signed the informed consent. Details of the procedure: The patient was identified in the holding area and brought to the operating room and positioned supine on the operating table. Sequential compression devices were applied to bilateral lower extremities to prevent deep venous thromboembolism. Subsequently, general endotracheal anesthesia was initiated without any complications. The surgical area was prepped and draped in a regular sterile fashion. TIME OUT: Immediately prior to procedure, time out was performed to include correct patient, agreement on the procedure to be performed, correct side, site, position, accurate procedure consent, relevant images, antibiotics, fluids. Everybody agreed. The skin at the umbilicus was anesthetized with Marcaine and periumbilical incision was made and carried down to the fascia. The umbilical stalk was grasped with a Lobito clamp and lifted up. The fascia was incised vertically through the linea alba. Two 0-Vicryl stay sutures were placed. The peritoneum was penetrated bluntly with a hemostat. The absence of adhesions was confirmed with a finger swipe. A balloon trocar was placed and the abdomen was insufflated to 15 mm Hg. A 10 mm 30 degree angle camera was introduced into the abdomen. Three additional 5mm trocars were placed in the epigastric area and in the RUQ under direct vision. The patient was placed in reversed Trendelenburg position and rotated right side up. The gallbladder was located in the normal anatomic position in the RUQ. It was acutely inflamed and distended. Gallbladder was aspirated with a needle. There was dark bile inside the gallbladder, no pus. The fundus of the gallbladder was grasped and retracted cephalad. The infundibulum was identified and retracted laterally. The peritoneum was opened with hook cautery over the infundibulum of the gallbladder on the medial and lateral sides. Upon blunt dissection at the Callot?s triangle I identified the cystic duct and the cystic artery. Both were bluntly dissected circumferentially. A critical view of safety was obtained with only cystic artery and cystic duct coming from the gallbladder to the hepatoduodenal ligament and the liver clearly seen behind the cystic artery and duct. The cystic artery was doubly clipped and divided. The cystic duct was clipped at the junction with a gallbladder and a small ductotomy was made below the clip with cold scissors. Cystic duct was very very small. I was not able to introduce the catheter inside the cystic duct after multiple attempts. The proximal part of the cystic duct was clipped [three times ]_ and divided at the site of previously made ductotomy. Then I mobilized the gallbladder off the liver bed with hook cautery. There was [no spillage of bile]. There was [no spillage of stones]. The gallbladder was dissected off the liver bed and was placed into the Endocatch bag. The liver bed was inspected. Minor oozing from the liver bed was controlled with bovie cautery. All the blood clots were aspirated. The RUQ and subhepatic space were irrigated with normal saline until clear. All the irrigation fluid was aspirated. All the trocars were removed under direct vision and the abdomen was desufflated. The specimen was removed from the abdomen through the umbilical incision and passed off the field. The fascia at the umbilical incision was closed with two interrupted 0-Vicryl sutures, stay sutures were tied down as well. Then the wound was irrigated with saline and injected with Marcaine. Skin incisions were closed primarily with 4-0 Monocryl. Steristrips were applied. The needle, instrument and sponge counts were correct x 2. The patient tolerated the procedure well, was extubated in the OR and was transferred to the recovery in stable condition.
--- NOTE | 2022-02-20 13:25 | PC.NURSE ---
1320- Patient returned to unit at this time. Patient has 4 small steri-strip incision sites to abdomen which are clean, dry, and intact. Patient denies any pain at this time, states she is just very sleepy . Patient advised to notify nurse if pain begins.
--- NOTE | 2022-02-20 13:27 | ANE.PACU2 ---
Inpatient post-anesthesia follow up: Airway intact: Yes Vital signs: Temperature 98.0 F Pulse Rate 96 Respiratory Rate 15 Blood Pressure 108/64 Pulse Oximetry 94 Oxygen Delivery Me thod Room Air Oxygen Flow Rate 6 Fraction of Inspir ed Oxygen Hydration adequate: Yes Nausea and vomiting: No Pain level: 3 Mental status: Baseline
[2022-02-20] MEDS: cetirizine 10 mg Tablet PO (14:53)
[2022-02-20] MEDS: amitriptyline 25 mg Tablet 75 MG PO (14:53)
--- NOTE | 2022-02-20 15:21 | PM.DCS ---
Discharge Providers Date of Admission: 02/19/22 05:06 Date of Discharge: February 20, 2022 Attending Provider at Admission: Reid Crespo MD Attending Provider at Discharge: Reid Crespo MD Primary Care Provider: Kervin Washington MD Diagnoses at Discharge Discharge Diagnosis (1) Cholelithiasis: Status: Acute (2) Leukocytosis: Status: Acute (3) Thickened endometrium: Status: Acute (4) Migraines, neuralgic: Status: Acute Permanent problem details: Since her teenage years. Denies auras Controlled with medication. Reason for Visit Reason for Visit: CP Brief History: The patient presented to the hospital with abdominal pain Hospital Course Hospital Course She was diagnosed with cholelithiasis, suspicious for acute cholecystitis. She was taken to the operating room, she did have acute cholecystitis with acutely distended sick erythematous gallbladder. Uncomplicated laparoscopic cholecystectomy. Unable to perform IOC because of the very small size of the cystic duct and no availability of the appropriate size catheter. Postoperative period uncomplicated. Discharged home in stable condition. Physical Exam Narrative: General: No acute distress, comfortable Psych: AAOx3 Eyes: Sclerae are white Head/ENT: Normocephalic, symmetric CV: Regular pulse, tachychardic, no JVD Lungs: Symmetrical chest rise Abdomen: Soft, ND, mild tenderness around incisions, dressing clean dry intact Ext: No obvious traumatic deformities Skin: warm Discharge Data Studies Completed and Pending Completed Studies During Hospitalization Category Date Time Status CT abdomen pelvis w con* [id number] Routine Cat Scan 02/19/22 12:23 Completed XR chest 1V portable [id number] Stat Exams 02/19/22 04:02 Completed US gall bladder [id number] Stat Ultrasound 02/19/22 04:14 Completed Pending at discharge Category Date Time Status Pathology: Surgical [PTH] Routine Pth 02/20/22 12:30 Received Radiology Impressions Chest X-Ray 02/19/22 04:02 IMPRESSION: No chest radiographic evidence of acute cardiopulmonary disease. Gallbladder Ultrasound 02/19/22 04:14 IMPRESSION: 1. Multiple mobile gallstones, the largest measuring 1.6 cm. No gallbladder wall thickening. No pericholecystic fluid. Sonographic Richards sign was reported by the business objects report developer. Hepatobiliary scan may be performed, if there is further clinical concern. 2. No biliary ductal dilatation. Abdomen/Pelvis CT 02/19/22 12:23 IMPRESSION: 1. Gallbladder findings. See discussion above. 2. No acute abdominopelvic findings otherwise. COMMENTS: Consistent with the [employer]'s Incidental Findings Committee white paper (J Am Sanjuana Radiol 2018): Any incidental renal lesion less than 1 cm or classified as too small to characterize, or any incidental cystic renal lesion characterized as simple-appearing, is likely benign. No follow-up imaging is recommended for these lesions per consensus recommendations based on imaging criteria. Laboratory Results WBC 7.7 10^3/uL (4.0-10.0) 02/20/22 03:30 RBC 4.19 10^6/uL (4.1-5.3) 02/20/22 03:30 Hgb 11.9 g/dL (11.5-15.3) 02/20/22 03:30 Hct 38.3 % (37.0-47.0) 02/20/22 03:30 MCV 91.4 fl (81-99) 02/20/22 03:30 MCH 28.4 pg (28.0-34.0) 02/20/22 03:30 MCHC 31.1 g/dL (30.0-36.0) 02/20/22 03:30 RDW 13.6 % (12.1-15.1) 02/20/22 03:30 Plt Count 362 10^3/cmm (130-400) 02/20/22 03:30 MPV 9.8 fL (7.4-10.4) 02/20/22 03:30 Neut % (Auto) 68.9 % 02/20/22 03:30 Lymph % (Auto) 18.8 % 02/20/22 03:30 [place] % (Auto) 10.6 % 02/20/22 03:30 Eos % (Auto) 0.9 % 02/20/22 03:30 Baso % (Auto) 0.5 % 02/20/22 03:30 Neut # (Auto) 5.27 10^3/uL (1.8-7.7) 02/20/22 03:30 Lymph # (Auto) 1.4 10^3/uL (0.8-4.8) 02/20/22 03:30 [place] # (Auto) 0.8 10^3/uL (0.2-0.9) 02/20/22 03:30 Eos # (Auto) 0.1 10^3/uL (0.0-0.8) 02/20/22 03:30 Baso # (Auto) 0.0 10^3/uL (0.0-0.1) 02/20/22 03:30 Nucleated RBC % (auto) 0 % 02/20/22 03:30 Nucleated RBCs # 0.0 /100WBC 02/20/22 03:30 Sodium 139 mmol/L (136-145) 02/20/22 03:30 Potassium 3.9 mmol/L (3.5-5.1) 02/20/22 03:30 Chloride 107 mmol/L (98-107) 02/20/22 03:30 Carbon Dioxide 23 mmol/L (22-29) 02/20/22 03:30 Anion Gap 12.9 (5-19) 02/20/22 03:30 BUN 9 mg/dL (6-20) 02/20/22 03:30 Creatinine 0.6 mg/dL (0.5-0.9) 02/20/22 03:30 GFR Calculation 105.0 mL/min (90-130) 02/20/22 03:30 Glucose 90 mg/dL (65-115) 02/20/22 03:30 POC Glucose 90 mg/dL (70-110) 02/20/22 06:07 Calculated Osmolality 286 mOsm/kg (285-295) 02/20/22 03:30 Calcium 8.3 mg/dL (8.5-10.5) L 02/20/22 03:30 Total Bilirubin 0.4 mg/dL (0.15-1.2) 02/20/22 03:30 AST 150 U/L (0-32) H 02/20/22 03:30 ALT 175 U/L (0-33) H 02/20/22 03:30 Alkaline Phosphatase 175 U/L (35-105) H 02/20/22 03:30 Troponin T Baseline 6 ng/L (0-10) 02/19/22 04:17 Troponin T 120 Minute 6.00 ng/L (0-10) 02/19/22 06:07 Delta Troponin T 0 ABS# (0-10) 02/19/22 06:07 Troponin T Hi Sens 6Hr 6.00 ng/L (0-10) 02/19/22 10:18 Troponin T Hi Sens 6Hr Delta 0 ng/L (0-12) 02/19/22 10:18 Total Protein 6.3 g/dL (6.6-8.7) L D 02/20/22 03:30 Albumin 3.3 g/dL (3.5-5.2) L 02/20/22 03:30 Globulin 3.0 g/dL (1.3-4.6) 02/20/22 03:30 Lipase 13 U/L (13-60) 02/19/22 04:17 Urine Color Yellow (Yellow) 02/19/22 17:16 Urine Appearance Clear (CLEAR) 02/19/22 17:16 Urine pH 7 (5-7) 02/19/22 17:16 Ur Specific [place] 1.005 (1.005-1.030) 02/19/22 17:16 Urine Protein 1+ (Negative) H 02/19/22 17:16 Urine Glucose (UA) Norm (Normal) 02/19/22 17:16 Urine Ketones Negative (Negative) 02/19/22 17:16 Urine Blood 2+ (Negative) H 02/19/22 17:16 Urine Nitrate Positive (Negative) H 02/19/22 17:16 Urine Bilirubin Neg (Negative) 02/19/22 17:16 Urine Urobilinogen 4 mg/dL (Negative) H 02/19/22 17:16 Ur Leukocyte Esterase Trace (Negative) H 02/19/22 17:16 Urine RBC 0-4 /hpf (0-2) H 02/19/22 17:16 Urine WBC 0-4 /hpf (0-5) H 02/19/22 17:16 Ur Squamous Epith Cells 0-4 /hpf (0-5) H 02/19/22 17:16 Amorphous Sediment Not Reportable 02/19/22 17:16 Urine Bacteria Trace /hpf (NONE) 02/19/22 17:16 Urine HCG, Qual Negative (Negative) 02/19/22 17:16 Procedures Performed . Laparoscopic cholecystectomy Vitals Last Vital Signs Temp 98.0 F 02/20/22 13:07 Pulse 96 02/20/22 13:07 Resp 15 02/20/22 13:07 BP 108/64 02/20/22 13:07 Pulse Ox 94 10/21/22 13:07 O2 Del Method 02/20/22 13:07 O2 Flow Rate 6 02/20/22 12:42 Discharge Plan Discharge Patient Disposition: Home Condition: Stable Prescriptions: New Tylenol 325 mg tablet 975 mg PO Q8H Qty: 30 0RF docusate calcium 240 mg capsule 240 mg PO BID Qty: 20 0RF ibuprofen 800 mg tablet 800 mg PO Q8H Qty: 10 0RF tramadol 50 mg tablet 50 mg PO Q8H PRN (Reason: pain) Qty: 20 0RF Continued amitriptyline 75 mg tablet 75 mg PO DAILY cetirizine [24Hour Allergy] 10 mg tablet 10 mg PO DAILY gabapentin 300 mg PO DIRECTED Rx Instructions: 300mg in the am and 600mg at bedtime Nurtec ODT 75 mg tablet,disintegrating 75 mg PO PRN PRN (Reason: Headache) Discharge Orders: Discharge Order (Routine); Ordered 02/20/22 Ordered By: Reid Crespo Referrals: Kervin Washington MD [Primary Care Provider] - Discharge Diet: Advance as tolerated Discharge Activity: Resume usual activity Patient Instructions: Opioid Safety Activity Restrictions/Additional Instructions: DIET: - Solid meals. - Start taking stool softner/laxatives if you do not have a bowel movement in 1-2 days after surgery. WOUND CARE: - Apply ice pack to your wounds for 20 min every 4 hours x 2-3 days and as needed to prevent swelling and reduce pain. - Ok to shower tomorrow. [Do not remove paper strips from your wound.] Let the water and soap run over the wounds, do not scrub. No soaking in a bath tab. Pat it dry after the shower and replace the band aid. ACTIVITY: - No heavy lifting, no more than 15 lbs x 4 weeks. No heavy pushing. - All other activities as tolerated, avoid strenuous exercise of any sort for 2 weeks. PAIN CONTROL: - First line: Tylenol 975 mg PO q6h x 3-5 days; stop taking it if you have no pain at all. - Second line: Ibuprofen 800 mg PO q8h for 3 days as needed for pain - Back up thirud line: Tramadol 50 mg PO q4-6h PRN for pain; start taking Tramadol if Tylenol with Ibuprofen are not effective FOLLOW-UP CARE: Please, call to confirm/arrange for appointment, - with General Surgery, [facility] in 2-3 weeks; please, call the office to confirm an appointment PRECAUTIONS: If you taking any opioids, including but not limited to [place]/Vicodin/Percocet/Tramadol/Codeine: Do not drive or operate any heavy machinery Do not consume alcohol, tranquilizers Contact surgery office/go to emergency room with any of the following: Fever over 101 F. Pain not relieved by medications ordered. Increase redness, warmth, swelling or hardness around the operative area. Blood-soaked dressing (small amounts of drainage may be normal). Increasing drainage from the surgical area or exam site. Inability to urinate, Persistent nausea, vomiting, inability to tolerate oral intake, worsening abdominal pain/distention, inability to pass gas for more than 24h. Discharge Attestations Time Spent in Discharge Care*: less than 30 min Quality Metrics Clinical Quality Measures [ No reported AMI, CVA or VTE this stay] Coding Level of Care Code Acute g [facility] note Diagnoses Cholelithiasis K80.20 Leukocytosis D72.829 Thickened endometrium R93.89 Migraines, neuralgic G44.009
== END 2022-02-20 16:41 | disposition home or self-care (01) ==
LOC: ER 05:06 → MEDSURG 05:18
PROVIDERS: Admitting Provider Surgery; Emergency Provider Emergency Medicine; PCP Family Medicine; Visit Provider Surgery
PROC: 0FT44ZZ Resection of Gallbladder, Percutaneous Endoscopic Approach (ICD-10-PCS; CPT 47562; principal; 2022-02-20 09:55)
DX: K80.10 Calculus of gallbladder with chronic cholecystitis without obstruction (principal); G44.009 Cluster headache syndrome, unspecified, not intractable; R93.89 Abnormal findings on diagnostic imaging of other specified body structures; D72.829 Elevated white blood cell count, unspecified
CPT/HCPCS: 47562; 12345; 36415; 36416; 71045; 74177; 76705; 80053; 81001; 81025; 82962; 83690; 84484; 85025; 88304; 93005; 96365; 96367; 96375; 96376; 99285; G0378; J1100; J1170; J1885; J1956; J2250; J2270; J2405; J2704; J2710; J3010; J3490; J7030; Q9967

== ENCOUNTER 2022-04-10 12:52 | Outpatient (CLI) | payer OTHER, SELFPAY ==
--- NOTE | 2022-04-10 13:06 | MM_ITS ---
WS: [id number] Bilateral screening 3D tomosynthesis digital mammogram, 04/10/2022 Clinical Data: SCREENING Comparison: 11/06/2020, 10/26/2019, 08/15/2018, 08/09/2017, 08/02/2015, 07/30/2014, 07/27/2013, 06/29/2012, 06/01, 05/26/2010, 05/21/2010. Findings: The breast parenchymal pattern shows heterogeneous density. No spiculated masses or clustered calcifi cations are seen. There are no secondary signs of carcinoma. MM/[place] [id number] Impression: 1. Negative bilateral mammogram unchanged. 2. Recommend annual screening mammograms. BIRADS: 1-Negative FOLLOW UP: 1 Year Follow-up The CAD content checker was used.
== END 2022-04-10 12:53 | disposition home or self-care (01) ==
LOC: RAD 12:53
PROVIDERS: PCP Family Medicine; Visit Provider Family Medicine
DX: Z12.31 Encounter for screening mammogram for malignant neoplasm of breast (principal)
CPT/HCPCS: 77063; 77067

== ENCOUNTER 2023-01-06 06:55 | Outpatient (CLI) | payer OTHER, SELFPAY ==
--- NOTE | 2023-01-06 07:15 | MR_ITS ---
WS: [email or web address] MRA ANGIOGRAPHY [place] HISTORY: G43.909 - Migraine, unspecified, not intractable, without... COMPARISON: None available. TECHNIQUE: 3-D MR angiography is performed of the [place]. All images are reviewed including source images. Distal vertebral and basilar arteries are intact with no significant stenosis or plaque. Dominant LEF T vertebral artery. Posterior cerebral arteries are normal course and caliber. Posterior communicatin g arteries are both patent. Intracranial portion of the internal carotid arteries are normal course and caliber. No significant a therosclerosis, stenosis or aneurysm identified. Middle and anterior cerebral arteries are both paten t with no significant disease. Anterior communicating artery is also normal. IMPRESSION: Normal MRA [place].
--- NOTE | 2023-01-06 07:30 | MR_ITS ---
WS: [email or web address] MRI BRAIN WITH AND WITHOUT CONTRAST HISTORY: G43.909 - Migraine, unspecified, not intractable, chronic headaches COMPARISON: None available. TECHNIQUE: Multiplanar imaging performed through the brain with MultiHance 16 ml's IV. No acute infarcts are seen. Steiner-white matter differentiation is well preserved. Symmetric hippocampa l formations. No atrophy or sclerosis. No susceptibility artifacts or prior lacunar infarcts. Ventricles and extra-axial spaces are normal. Clivus and pituitary gland are normal. Visualized posterior fossa and brainstem are also normal. No enhancing masses. Increased signal on the postcontrast sequences in the RIGHT frontal lobe I belie ve is an artifact and not a venous angioma. Dural venous sinuses are normal. Paranasal sinuses: Well aerated with no significant disease. Mastoid air cells: Normal. Calvarium and scalp: Normal. IMPRESSION: 1. Normal MRI brain with contrast. 2. Normal appearance of the hippocampal formations. 3. No prior infarct and no significant atrophy.
[2023-01-06] MEDS: gadobenate dimeglumine 20 mL vial IV (08:05)
== END 2023-01-06 06:56 | disposition home or self-care (01) ==
PROVIDERS: PCP Family Medicine; Visit Provider Psychiatry & Neurology Neurology
DX: G43.909 Migraine, unspecified, not intractable, without status migrainosus (principal)
CPT/HCPCS: 70544; 70553; A9577

== ENCOUNTER 2023-05-11 08:13 | Outpatient (CLI) | payer OTHER, SELFPAY ==
--- NOTE | 2023-05-11 08:26 | MM_ITS ---
WS: [email or web address] BILATERAL SCREENING DIGITAL TOMOSYNTHESIS MAMMOGRAM WITH CAD HISTORY: SCREENING COMPARISON: 04/10/2022 and 11/06/2020 Bilateral CC and MLO views with tomosynthesis and synthetic mammography submitted. Computer aided det ection analyzed. Breast composition: There are scattered areas of fibroglandular density. No suspicious masses, microc alcifications or architectural distortion. IMPRESSION: MM/[place] [id number] BI-RADS: 1-Negative FOLLOW UP: 1 Year Follow-up
== END 2023-05-11 08:14 | disposition home or self-care (01) ==
LOC: RAD 08:13
PROVIDERS: PCP Family Medicine; Visit Provider Obstetrics & Gynecology
DX: Z12.31 Encounter for screening mammogram for malignant neoplasm of breast (principal)
CPT/HCPCS: 77063; 77067

== ENCOUNTER 2024-07-05 07:27 | Outpatient (CLI) | payer OTHER, SELFPAY ==
--- NOTE | 2024-07-05 07:33 | MM_ITS ---
WS: [email or web address] SCREENING DIGITAL TOMOSYNTHESIS MAMMOGRAM WITH CAD HISTORY: SCREENING COMPARISON: 05/11/2023, 04/10/2022 Bilateral CC and MLO with tomosynthesis views submitted. Synthetic mammography reviewed. Computer aided detection analyzed. Breast composition: The breasts are heterogeneously dense, which may obscure small masses. No suspicious masses, microcalcifications or architectural distortion. MM/MM scr [place] tomosynthesis [id number] IMPRESSION: BI-RADS: 2 - Benign FOLLOW UP: 1 Year Follow-up
== END 2024-07-05 07:28 | disposition home or self-care (01) ==
PROVIDERS: PCP Family Medicine; Visit Provider Family Medicine
DX: Z12.31 Encounter for screening mammogram for malignant neoplasm of breast (principal); R92.333 Mammographic heterogeneous density, bilateral breasts
CPT/HCPCS: 77063; 77067

== ENCOUNTER 2024-08-31 07:46 | Outpatient (RCR) | payer OTHER, SELFPAY | END 2024-09-30 23:59 | disposition home or self-care (01) | LOC: SPT 07:46 | PROVIDERS: Visit Provider Specialist | DX: M54.2 Cervicalgia (principal) | CPT/HCPCS: 97110; 97140; 97161 ==

== ENCOUNTER 2024-10-01 05:00 | Outpatient (RCR) | payer OTHER, SELFPAY | END 2024-10-20 07:40 | disposition home or self-care (01) | LOC: SPT 05:00 | PROVIDERS: Visit Provider Specialist | DX: M54.2 Cervicalgia (principal) | CPT/HCPCS: 97110; 97140; 97530 ==

== ENCOUNTER 2024-11-24 12:37 | Outpatient (CLI) | payer OTHER, SELFPAY ==
--- NOTE | 2024-11-24 13:00 | MR_ITS ---
WS: [email or web address] MR CERVICAL SPINE WO/W COMPARISON: None. HISTORY: M54.2 - Cervicalgia TECHNIQUE: Sagittal T1, T2 and T2 inversion recovery; axial T2, T2 gradient and fiesta. Post gadolinium imaging with fat saturation technique. FINDINGS:Straightening of the normal cervical lordosis. No high grade central canal narrowing. Cord signal is normal. No visualized lesions in the cervical cord. No high-grade central canal stenosis. Mild disc bulging worse at C4-5. Incidental perineural cysts in the mid and lower cervical spine. No abnormal gadolinium enhancement. C2-3: Mild facet arthropathy. C3-4: Mild facet arthropathy. Endplate ridging. Mild LEFT bony foraminal narrowing. C4-5: Minimal disc bulging. Spinal canal and foramen are patent. Incidental LEFT perineural sleeve cyst. C5-6: No significant disc bulging. Spinal canal is patent. Mild facet arthropathy. Uncovertebral joint hypertrophy. Mild LEFT bony foraminal narrowing. Incidental small perineural sleeve cyst. C6-7: No significant disc bulging. Spinal canal is patent. Incidental bilateral perineural sleeve cysts. C7-T1: No significant disc bulging. Endplate ridging. Incidental bilateral perineural sleeve cysts. MR/MR cervical spine wo/w [id number] IMPRESSION: 1. Straightening of the normal cervical lordosis. 2. No high-grade central canal narrowing. Cord signal is normal. 3. No abnormal gadolinium enhancement. No lesions in the cervical cord. 4. Mild disc bulging at C4-5 with endplate ridging. Mild bilateral foraminal n arrowing at this level. 5. A few incidental perineural sleeve cysts described above.
[2024-11-24] MEDS: gadobenate dimeglumine 20 mL vial IV (13:41)
== END 2024-11-24 12:38 | disposition home or self-care (01) ==
PROVIDERS: PCP Family Medicine; Visit Provider Psychiatry & Neurology Neurology
DX: M47.812 Spondylosis without myelopathy or radiculopathy, cervical region (principal); M50.321 Other cervical disc degeneration at C4-C5 level
CPT/HCPCS: 72156